=== PATIENT | female | born 1955 | race Caucasian/White ===

== ENCOUNTER 2016-03-26 13:12 | Day surgery (SDC) | payer OTHER ==
[~2016-03-26] VITALS: Ht 167.6 cm; Wt 83.0 kg
[~2016-03-26 13:12] MED LIST: CLARITIN,ALAVAR10 MG PO; FOSAMAX70 MG PO; GARCINIA CAMBO1 EACH PO; PEPCID20 MG PO; TYLENOL EXTRA500 MG PO; ZOCOR40 MG PO; ZOLOFT50 MG PO
[2016-03-26 13:49] VITALS: BP 118/70
[2016-03-26 19:00] VITALS: BP 134/74
[2016-03-26 20:05] VITALS: BP 158/75
== END 2016-03-26 20:12 | disposition home or self-care (01) ==
LOC: SDC 13:12
DX: H35.341 Macular cyst, hole, or pseudohole, right eye (principal); F41.9 Anxiety disorder, unspecified; K21.9 Gastro-esophageal reflux disease without esophagitis; E78.5 Hyperlipidemia, unspecified
CPT/HCPCS: J0690; J2250; J2405; J3010; J3300; J7120